=== PATIENT | female | born 1950 | race Caucasian/White ===

== ENCOUNTER → 2017-02-27 | Outpatient (CLI) | payer MEDICARE, MEDICAID | END | disposition home or self-care (01) | LOC: PCVCCLINIC 12:41 | PROVIDERS: ATTEND Nuclear Medicine Nuclear Cardiology | DX: Z01.812 Encounter for preprocedural laboratory examination (principal); I73.9 Peripheral vascular disease, unspecified; I10 Essential (primary) hypertension; E78.00 Pure hypercholesterolemia, unspecified; C64.2 Malignant neoplasm of left kidney, except renal pelvis; E11.9 Type 2 diabetes mellitus without complications; J44.9 Chronic obstructive pulmonary disease, unspecified; F17.210 Nicotine dependence, cigarettes, uncomplicated | CPT/HCPCS: 36415; G0463 ==

== ENCOUNTER → 2017-03-03 | Outpatient (CLI) | payer MEDICARE, MEDICAID ==
[~2017-03-03] MED LIST: DIAZEPAM 10 MG TABLET. ONE; HEPARIN SODIUM 5,000 UNIT/ML VIAL for PCVC. ONE; IODIXANOL 270 MG/ML 100 ML VIAL. ONE; IV NORMAL SALINE 1000ML BAG 1,000 ML ONE; LIDOCAINE 1% Multi-Dose 20 ML VIAL. ONE; MIDAZOLAM HCL/PF 2 MG/2 ML VIAL. ONE; diphenhydrAMINE 50 MG/ML VIAL ONE; fentaNYL PF VIAL 100 MCG/2 ML VIAL ONE; hydrALAZINE 20 MG/ML VIAL. ONE
--- NOTE | 2017-03-03 13:54 | PCVCIMAG ---
EXAM: RIGHT SUPERFICIAL VENOUS DUPLEX INDICATION: Leg pain and swelling. FINDINGS: Right leg: No thrombus in the common femoral, main femoral, or popliteal veins. These veins are compressible. Right Great Saphenous Vein: At the saphenofemoral junction the diameter is 11.1 mm, in the mid thigh it is 3.9 mm, and in the calf it is 2.7 mm. There is not significant venous insufficiency/reflux throughout. Venous insufficiency/reflux duration is 0.2 seconds. Right Small Saphenous Vein: At the saphenopopliteal junction the diameter is 4.5 mm, and in the calf it is 2.8 mm. There is not significant venous insufficiency/reflux throughout. Venous insufficiency/reflux duration is 0.2 seconds. There is not a cranial extension present. IMPRESSION: Right Great Saphenous Vein: No significant venous insufficiency/reflux is present as noted above. Right Small Saphenous Vein: No significant venous insufficiency/reflux is present as noted above. LOC:[place] [id number]
--- NOTE | 2017-03-03 14:01 | PCVCINTER ---
EXAM: 1. AORTOGRAM AND BILATERAL LOWER EXTREMITY RUNOFF ANGIOGRAM 2. BILATERAL RENAL ANGIOGRAPHY INDICATION: Peripheral arterial disease. Prior nonhealing ulcers right lower leg. Leg pain. Hypertension. Renal atherosclerosis. PROCEDURE: Procedure and risks of angiography intervention is appropriate including limb loss stroke and were discussed with the patient's family and consent obtained. The patient's left groin was prepped abnormal sterile fashion. IV conscious sedation was used to procedure with appropriate monitoring from 10:30 AM through 11:30 AM. Ultrasound was used to interrogate the left groin and showed the left common femoral artery to be patent. A permanent spot film was obtained. Under ultrasound guidance access into the left common femoral artery was obtained and a 5 [place] sheath was placed. Through this a 5 [place] flush catheter was placed into the abdominal aorta at the level of the renal arteries and AP aortogram was performed. Catheter was positioned at the aortic bifurcation and both oblique views of the pelvis were obtained. Catheter was positioned into the left external iliac artery and left leg runoff angiography was performed. Catheter was exchanged for a visceral catheter was placed into the right renal arteries and right renal angiograms obtained. Catheter was placed into the the left renal arteries and left renal angiograms were obtained. Catheter was advanced to the level of the right external iliac artery and right leg runoff angiography was obtained. Catheters and wires removed. Sheath was removed and hemostasis obtained using the FISH device. No immediate complications. FINDINGS: Aortogram: There is one right renal artery. Previous left nephrectomy. Mild ectasia infrarenal abdominal aorta without significant stenosis. Pelvis: Mild/moderate plaque in the right left common and external iliac arteries without significant stenosis. Both internal iliac arteries are patent. The right and left common femoral and profunda femoral arteries are patent. Right renal artery: Minimal plaque proximal vessel does not cause significant stenosis. Left renal artery: Surgical absence of the left renal artery. Right leg: Superficial femoral artery shows good patency throughout. Short segment occlusion of the mid to lower popliteal artery. There is refilling of the distal most popliteal artery. Patent three-vessel runoff into the foot. Left leg: Minimal plaque throughout the superficial femoral artery and popliteal artery without significant stenosis. Three-vessel patent runoff into the foot. 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 Well-developed collaterals refill the distal popliteal artery with patent three-vessel runoff. This occlusion is not readily amenable to percutaneous revascularization and would likely require a retrograde approach. Given only mild symptoms currently no intervention was undertaken today. No flow-limiting stenoses in the left lower extremity. LOC:[id number]
== END | disposition home or self-care (01) ==
LOC: PCVCINTER 09:05
PROVIDERS: ATTEND Nuclear Medicine Nuclear Cardiology
DX: I70.291 Other atherosclerosis of native arteries of extremities, right leg (principal); I10 Essential (primary) hypertension; I70.1 Atherosclerosis of renal artery
CPT/HCPCS: 36246; 36252; 75716; 76937; 93971; 99152; 99153; C1751; C1760; C1769; C1894; J1644; J2250; J3010; J7030; Q9966; J0360; J0690; J1200